=== PATIENT | female | born 1990 | race Caucasian/White ===

== ENCOUNTER 2017-12-09 21:05 | Emergency (ER) | payer OTHER ==
[~2017-12-09] VITALS: Ht 167.6 cm; Wt 107.5 kg
[~2017-12-09 21:05] MED LIST: KETO10TA2 PO; LEVSIN/SL0.125 MG SL; ORPH100T PO; PEPCID40 MG PO; ZITHROMAX TRI-500 MG PO
[2017-12-10] MEDS ORDERED: ZOFRAN ODT4 MG PO (03:03)
[2017-12-10] MEDS ORDERED: PEPCID40 MG PO (03:03)
== END 2017-12-10 02:58 | disposition home or self-care (01) ==
LOC: ER 21:05
DX: K52.9 Noninfective gastroenteritis and colitis, unspecified (principal)

== ENCOUNTER 2019-08-15 03:19 | Emergency (ER) | payer OTHER ==
[~2019-08-15] VITALS: Ht 167.6 cm; Wt 99.8 kg
[~2019-08-15 03:19] MED LIST changes: +ZOFRAN ODT4 MG PO
[2019-08-15] MEDS ORDERED: LEVSIN/SL0.125 MG SL (07:46)
[2019-08-15] MEDS ORDERED: PEPCID AC20 MG PO (07:46)
== END 2019-08-15 08:58 | disposition home or self-care (01) ==
LOC: ER 03:19
DX: K80.80 Other cholelithiasis without obstruction (principal)

== ENCOUNTER 2019-11-07 10:54 | Emergency (ER) | payer OTHER ==
[~2019-11-07] VITALS: Ht 170.2 cm; Wt 99.8 kg
[~2019-11-07 10:54] MED LIST changes: +PEPCID AC20 MG PO
[2019-11-07] MEDS ORDERED: VISTARIL50 MG PO (14:28)
== END 2019-11-07 13:23 | disposition home or self-care (01) ==
LOC: ER 10:54
DX: R07.89 Other chest pain (principal); D50.0 Iron deficiency anemia secondary to blood loss (chronic); F41.1 Generalized anxiety disorder; F43.0 Acute stress reaction; F41.0 Panic disorder [episodic paroxysmal anxiety]

== ENCOUNTER 2021-10-10 22:24 | Outpatient (CLI) | payer OTHER ==
[~2021-10-10 22:24] MED LIST changes: +VISTARIL50 MG PO
== END 2021-10-11 13:17 | disposition home or self-care (01) ==
LOC: OBS/DEL 22:24
PROVIDERS: ATTEND Obstetrics & Gynecology
DX: O26.892 Other specified pregnancy related conditions, second trimester (principal); Z3A.27 27 weeks gestation of pregnancy; D64.9 Anemia, unspecified

== ENCOUNTER 2023-01-15 21:00 | Emergency (ER) | payer OTHER ==
[~2023-01-15] VITALS: Ht 167.6 cm; Wt 103.4 kg
[~2023-01-15 21:00] MED LIST changes: +FOLIC ACID0.8 M1 PO
[2023-01-16] LABS: HEMATOCRIT 36.8 % (36.0-45.00); HEMOGLOBIN 11.9 g/dL (12.0-15.00); MEAN CELL VOLUME 81.7 fL (80.00-100.00); MEAN CORPUSCULAR HEMOGLOBIN 26.4 pg (27.00-32.0); MEAN CORPUSCULAR HGB CONC 32.3 g/dl (32.0-36.0); PLATELET COUNT 331 K/uL (150-450); RED BLOOD COUNT 4.51 M/uL (4.00-6.00); RED CELL DISTRIBUTION WIDTH 15.4 % (11.5-14.5)
[2023-01-16 00:18] LABS: CALCIUM 9.5 mg/dL (8.5-10.1); CREATININE SERUM 0.86 mg/dL (0.55-1.02); GFR 75.53; POTASSIUM 3.75 mEq/L (3.5-5.1)
[2023-01-16 01:05] LABS: URINE APPEARANCE Cloudy; URINE BILIRRUBIN Negative (NEGATIVE); URINE BLOOD Trace; URINE COLOR Yellow; URINE GLUCOSE Negative (NEGATIVE); URINE LEUKOCYTE Trace; URINE NITRATE Negative; URINE PROTEIN Negative (NEGATIVE); URINE UROBILINOGEN 0.2 E.U./dl
[2023-01-16 01:06] LABS: URINE BACTERIA 2827.4 uL (0.0-1933); URINE RBC 14.2 uL (0.0-20.8); URINE WBC 42.9 uL (0.0-23.2)
[2023-01-16] MEDS ORDERED: ACETAMINOPHEN500 M1 PO (02:02)
[2023-01-16] MEDS ORDERED: DICY20TA PO (02:02)
[2023-01-16] MEDS ORDERED: PEPCID20 MG PO (02:02)
[2023-01-16] MEDS ORDERED: INTESTINEX680 M1 PO (02:02)
== END 2023-01-16 02:55 | disposition home or self-care (01) ==
LOC: ER 21:00
PROVIDERS: Nurse Practitioner Family
DX: K52.9 Noninfective gastroenteritis and colitis, unspecified (principal); B34.9 Viral infection, unspecified

== ENCOUNTER → 2023-01-21 | Emergency (ER) | payer OTHER ==
[~2023-01-21] VITALS: Ht 167.6 cm; Wt 105.2 kg
[~2023-01-21] MED LIST changes: +ACETAMINOPHEN500 M1 PO; +DICY20TA PO; +INTESTINEX680 M1 PO; +PEPCID20 MG PO
[2023-01-21 03:54] LABS: HEMATOCRIT 32.3 % (36.0-45.00); HEMOGLOBIN 10.6 g/dL (12.0-15.00); MEAN CORPUSCULAR HEMOGLOBIN 26.3 pg (27.00-32.0); MEAN CORPUSCULAR HGB CONC 32.9 g/dl (32.0-36.0); PLATELET COUNT 321 K/uL (150-450); RED BLOOD COUNT 4.03 M/uL (4.00-6.00); RED CELL DISTRIBUTION WIDTH 15.3 % (11.5-14.5)
[2023-01-21 03:57] LABS: PARTIAL THROMBOPLASTIN TIME 25.1 SECONDS (22.0-34.0); PROTHROMBIN TIME 10.5 SECONDS (9.0-11.5)
[2023-01-21 04:02] LABS: ALBUMIN 3.3 gm/dL (3.4-5.0); ALKALINE PHOSPHATASE 100 U/L (50-136); ALT/SGPT 21 U/L (12-78); AMYLASE 54 U/L (25-115); ANION GAP 9 (10.0-20.0); AST/SGOT 18 U/L (15-37); BILIRUBIN TOTAL 0.19 mg/dL (0.3-1.2); BILIRUBIN,CONJUGATED < 0.10 mg/dL (0.0-0.2); BILIRUBIN,UNCONJUGATED 0.09 mg/dL (0.0-0.6); BLOOD UREA NITROGEN 11 mg/dL (7-18); BUN CREA RATIO 15 (7.0-25.0); CALCIUM 8.9 mg/dL (8.5-10.1); CARBON DIOXIDE 27 mEq/L (21-32); CHLORIDE 108 mmol/L (98-107); CREATININE SERUM 0.74 mg/dL (0.55-1.02); GFR 89.84; GLOBULINA 4.3 G/DL (2.4-3.5); GLUCOSE FASTING 111 mg/dL (65-100); LIPASE 29 U/L (13-75); OSMOLALITY SERUM 279 MOSM/KG (275-295); POTASSIUM 3.97 mEq/L (3.5-5.1); SODIUM 140 mmol/L (136-145); TOTAL PROTEIN 7.6 gm/dL (6.4-8.2)
[2023-01-21 06:52] LABS: URINE APPEARANCE Clear; URINE BACTERIA 2058.8 uL (0.0-1933); URINE BILIRRUBIN Negative (NEGATIVE); URINE BLOOD Negative; URINE COLOR Yellow; URINE EPITHELIAL CELLS 67.3 uL (0.0-38.8); URINE GLUCOSE Negative (NEGATIVE); URINE LEUKOCYTE Trace; URINE NITRATE Negative; URINE PROTEIN Negative (NEGATIVE); URINE RBC 7.7 uL (0.0-20.8); URINE UROBILINOGEN 0.2 E.U./dl; URINE WBC 35.3 uL (0.0-23.2)
== END | disposition home or self-care (01) ==
LOC: ER 02:46
PROVIDERS: General Practice
DX: K80.20 Calculus of gallbladder without cholecystitis without obstruction (principal)